=== PATIENT | female | born 1985 | race Caucasian/White ===

== ENCOUNTER 2017-06-14 18:59 | Emergency (ER) | payer SELFPAY ==
[~2017-06-14] VITALS: Ht 162.6 cm; Wt 70.3 kg
[2017-06-14 19:10] VITALS: BP 114/64
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
[2017-06-14] MEDS ORDERED: DIPHTH,PERTUSS(ACELL),TET TOX 0.5 ML DISP.SYRIN. VAX IM ONE (19:15)
[2017-06-14] MEDS ORDERED: ACETAMINOPHEN/CODEINE 300/30MG TABLET. PO ONE (19:15)
[2017-06-14] MEDS ORDERED: ACET-704 PO (19:35)
--- NOTE | 2017-06-15 09:02 | RAD ---
Right great toe 3 views. History: Pain, injury, patient takes fell on toe 3 views were taken of the right great toe. There is a comminuted nondisplaced fracture of the distal phalanx of the great toe. Fracture extends to the articular surface at the interphalangeal joint. Impression: 1. Fracture distal phalanx right great toe.
== END 2017-06-14 19:45 | disposition home or self-care (01) ==
LOC: ER 18:59
DX: S92.421A Displaced fracture of distal phalanx of right great toe, initial encounter for closed fracture (principal); Z88.8 Allergy status to other drugs, medicaments and biological substances; Z91.040 Latex allergy status; W22.8XXA Striking against or struck by other objects, initial encounter; Y93.89 Activity, other specified; Y92.89 Other specified places as the place of occurrence of the external cause; Y99.8 Other external cause status
CPT/HCPCS: 73660; 90471; 90715; 99284-25

== ENCOUNTER 2019-02-17 00:37 | Emergency (ER) | payer OTHER, SELFPAY ==
[~2019-02-17] VITALS: Ht 162.6 cm; Wt 72.6 kg
[~2019-02-17 00:37] MED LIST: ACET-704 PO
[2019-02-17] MEDS ORDERED: GABA-585 PO (01:04)
[2019-02-17] MEDS ORDERED: oxyCODONE/APAP 5/325 1 TAB TABLET PO ONE (01:15)
[2019-02-17 01:20] VITALS: BP 112/66
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
--- NOTE | 2019-02-17 02:30 | RAD ---
INDICATION: Elbow pain COMPARISON: None. IMPRESSION: Right elbow: 3 views obtained. No definite acute fracture or dislocation. Mild edema to the subcutaneous soft tissues including posterior to the olecranon. Electronically signed by: Felton Hui MD (02/17/2019 2:27 AM) [id number]
== END 2019-02-17 01:37 | disposition home or self-care (01) ==
LOC: ER 00:37
DX: M25.521 Pain in right elbow (principal); R20.0 Anesthesia of skin; Z88.5 Allergy status to narcotic agent; Z91.040 Latex allergy status
CPT/HCPCS: 73080; 99284-25